=== PATIENT | male | born 1990 | race Caucasian/White ===

== ENCOUNTER 2017-06-25 00:05 | Emergency (ER) | payer BC ==
[~2017-06-25] VITALS: Ht 180.3 cm; Wt 86.3 kg
[2017-06-25 00:12] VITALS: BP 136/94; TEMP 98.1
[2017-06-25 01:34] VITALS: PULSE 88
== END 2017-06-25 01:36 | disposition home or self-care (01) ==
LOC: COL.ER 00:05
DX: S01.112A Laceration without foreign body of left eyelid and periocular area, initial encounter (principal); W18.09XA Striking against other object with subsequent fall, initial encounter; Y92.59 Other trade areas as the place of occurrence of the external cause